=== PATIENT | female | born 1955 | race Caucasian/White ===

== ENCOUNTER 2022-10-16 06:00 | Observation (INO) | payer MEDICARE, BC ==
[~2022-10-16 06:00] MED LIST: DIAZEPAM5 MG PO; IBUPROFEN200 M2 PO; LEVOTHYROXINE75 MCG PO; Z.0.LIPITOR20 MG PO
[2022-10-16] MEDS ORDERED: SODIUM CHLORIDE 0.9% 500ML 500 ML ONE (06:51)
[2022-10-16] MEDS ORDERED: TRANEXAMIC ACID 20 ML ONE (06:51)
[2022-10-16] MEDS ORDERED: Vancomycin IV 1,000 MG ONE (06:51)
[2022-10-16] MEDS ORDERED: ROPIVACAINE 246.25 MG, EPINEPHRINE HCL 1:1000 1ML 0.5 MG, CLONIDINE HCL 0.08 MG, KETORO... INJ ONE ×5 (07:30)
[2022-10-16 08:00] LABS: BASOPHILS # (AUTO) 0.1 (0.0-0.1); BASOPHILS % 0.9 % (0.0-1.0); EOSINOPHILS # (AUTO) 0.2 (0.0-0.4); EOSINOPHILS % 2.5 % (0.0-6.0); HEMATOCRIT 40.8 % (34.2-44.1); HEMOGLOBIN 13.5 g/dL (12.0-16.0); LYMPHOCYTES # (AUTO) 2.3 (1.0-3.2); LYMPHOCYTES % 35.6 % (18.0-39.1); MEAN CORPUSCULAR HEMOGLOBIN 30.7 pg (28-32); MEAN CORPUSCULAR HGB CONC 33.1 g/dL (31-35); MEAN CORPUSCULAR VOLUME 92.7 fL (81-99); MONOCYTES # (AUTO) 0.5 (0.2-0.8); MONOCYTES % 7.7 % (4.4-11.3); NEUTROPHILS # (AUTO) 3.5 (2.1-6.9); NEUTROPHILS % 53.1 % (38.7-80.0); PLATELET COUNT 231 x10e3/uL (140-360); RED CELL DISTRIBUTION WIDTH 12.5 % (11.7-14.4)
[2022-10-16] MEDS ORDERED: LACTATED RINGER'S 1,000 ML ONE (08:02)
[2022-10-16] MEDS ORDERED: CEFAZOLIN SODIUM 2 GM ONE ×2 (08:02→14:17)
[2022-10-16] MEDS ORDERED: CELECOXIB 200 MG CAP ONE (08:14)
[2022-10-16] MEDS ORDERED: DEXAMETHASONE SOD PHOS 10 MG/1 ML VIAL ONE (08:14)
[2022-10-16] MEDS ORDERED: GABAPENTIN 300 MG CAP ONE (08:15)
[2022-10-16] MEDS ORDERED: ULTRAM 50MG50 MG PO (08:15)
[2022-10-16] MEDS ORDERED: DOCUSATE SODIUM 100 MG CAP PO PRN (10:30)
[2022-10-16] MEDS ORDERED: HYDROCODONE/APAP 7.5MG-325MG 1 EA TAB PO PRN (10:30)
[2022-10-16] MEDS ORDERED: DIPHENHYDRAMINE HCL INJ 50 MG/ML VIAL IV PRN (10:30)
[2022-10-16] MEDS ORDERED: HYDROCODONE/APAP 5MG-325MG TAB PO PRN (10:30)
[2022-10-16] MEDS ORDERED: ONDANSETRON HCL INJ 2MG/ML 2ML 2 MG/ML VIAL IV PRN (10:30)
[2022-10-16 10:41] VITALS: TEMP 97.7
[2022-10-16] MEDS: HYDROMORPHONE 1MG/1ML INJ ONE ×5 (11:02→11:30)
[2022-10-16] MEDS ORDERED: METOCLOPRAMIDE HCL 10 MG/2ML VIAL ONE (11:31)
[2022-10-16] MEDS ORDERED: ONDANSETRON HCL INJ 2MG/ML 2ML 2 MG/ML VIAL ONE (12:41)
[2022-10-16] MEDS ORDERED: GLYCOPYRROLATE INJ 0.2 MG/ML VIAL ONE (12:41)
[2022-10-16] MEDS ORDERED: ROCURONIUM BROMIDE 10 MG/ML 5ML VIAL IV ONE (12:41)
[2022-10-16] MEDS ORDERED: POVIDONE IODINE 0.05% 0.05 % ML PO ONE (12:41)
[2022-10-16] MEDS ORDERED: NEOSTIGMINE 1 MG/ML 10ML VIAL ONE (12:41)
[2022-10-16] MEDS ORDERED: PROPOFOL IV EMULSION 10 MG/ML 20 ML VIAL ONE (12:41)
[2022-10-16] MEDS ORDERED: LIDOCAINE HCL 2% LOCAL INJ 5 ML SDV VIAL INJ ONE (12:41)
[2022-10-16] MEDS ORDERED: DEXAMETHASONE SOD PHOS INJ 4 MG/ML SDV ONE (12:41)
[2022-10-16] MEDS ORDERED: FENTANYL CITRATE/PF 100MCG/2 ML INJ ONE ×2 (12:59→13:06)
[2022-10-16] MEDS ORDERED: MIDAZOLAM HCL 2 MG/2 ML VIAL ONE (12:59)
[2022-10-16] MEDS ORDERED: ROPIVACAINE 0.5% 5 MG/ML 30 ML SDV ONE (13:39)
[2022-10-16 14:10] VITALS: BP 120/60; PULSE 51; RESP 18; O2SAT 97
[2022-10-16] MEDS ORDERED: ASPIRIN81 MG PO (16:45)
[2022-10-16] MEDS ORDERED: SODIUM CHLORIDE 0.9% 1000ML 1,000 ML IV SCH (18:15)
[2022-10-16] MEDS ORDERED: CELECOXIB 100 MG CAP PO SCH (20:00)
[2022-10-16] MEDS ORDERED: ASPIRIN 325 MG TAB PO SCH (20:00)
[2022-10-17] MEDS ORDERED: ACETAMINOPHEN 1000 MG/100 ML IV PRN (10:30)
== END 2022-10-16 15:00 | disposition home health service (06) ==
LOC: OR 06:00 → PACU V 10:30
PROVIDERS: ADMIT Specialist; ATTEND Specialist
DX: M16.11 Unilateral primary osteoarthritis, right hip (principal); J44.9 Chronic obstructive pulmonary disease, unspecified; Z87.891 Personal history of nicotine dependence; Z79.899 Other long term (current) drug therapy
CPT/HCPCS: 27130; 36415; 72170; 85025; 86850; 86900; 86920; 97110; 97116 ×2; 97162; 97530; C1713 ×2; C1776 ×3; G0378; J0171; J1100 ×2; J1170; J1885; J2001; J2250; J2405; J2704; J2710; J2765; J2795; J3010; J3370; J7040; J7121; J0690

== ENCOUNTER → 2024-10-19 | Outpatient (REF) | payer MEDICARE ==
[~2024-10-19] MED LIST changes: +ADDERALL XR 1010 MG PO; +ASPIRIN81 MG PO; +COLESTIPOL HCL1 GM PO; +IOPAMIDOL 370 MG/ML 100 ML INFUS..BTL INJ ONE; +ULTRAM 50MG50 MG PO
[2024-10-19 13:55] LABS: CREATININE, SERUM 0.69 mg/dL (0.57-1.11)
== END ==
LOC: CT 13:06
PROVIDERS: ATTEND Nurse Practitioner
DX: K59.09 Other constipation (principal); R63.4 Abnormal weight loss; Z86.0100 Personal history of colon polyps, unspecified
CPT/HCPCS: 36415; 74177; 82565; 84520; Q9967